=== PATIENT | female | born 1950 | race African-American/Black ===

== ENCOUNTER 2018-05-13 20:14 | Inpatient (IN) | payer MEDICARE, MEDICAID ==
[~2018-05-13] VITALS: Ht 165.1 cm; Wt 120.7 kg
[~2018-05-13 20:14] MED LIST: AMLO10TA80 PO; APIXABAN PO; ASPI-1079 PO; ATROV NEB; BECL8.7A6 INH; CARV6.2548 PO; CLON0.3T PO; DOCU-138 PO; FERR-63 PO; FURO20TA4 PO; NITR0.4T49 SL; OMEP40CA34 PO; TOPI50TA PO; TRAM50TA PO
[2018-05-13] MEDS ORDERED: ONDANSETRON HCL 4MG/2ML INJ IV STA (21:30)
[2018-05-13 23:30] LABS: BASOPHILS % 0.8 % (0.0-2.0); EOSINOPHILS % 1.1 % (0.0-5.0); HEMATOCRIT. 35.1 % (36.0-48.0); HEMOGLOBIN. 10.9 g/dL (12.0-16.0); LYMPHOCYTES % 36.4 % (20.0-50.0); MEAN CORPUSCULAR HEMOGLOBIN 22.3 pg (28.0-32.0); MEAN CORPUSCULAR VOLUME 71.5 fL (81.0-99.0); MEAN PLATELET VOLUME 7.7 fl (7.4-10.4); MONOCYTES % 6.6 % (2.0-8.0); NEUTROPHILS % 55.1 % (40.0-76.0); PLATELET 254 x1000/uL (130-400); RED BLOOD CELL COUNT 4.91 mill/uL (4.2-5.4); RED CELL DISTRIBUTION WIDTH 16.2 % (11.6-14.6)
[2018-05-13 23:32] LABS: CHLORIDE 112 mEq/L (98-107)
[2018-05-13] MEDS ORDERED: NORT50CA MT (23:54)
[2018-05-13] MEDS ORDERED: METO-539 MT (23:54)
[2018-05-13] MEDS ORDERED: APIX5TAB MT (23:54)
[2018-05-14] MEDS ORDERED: AMLODIPINE 10MG TABLET PO SCH
[2018-05-14] MEDS ORDERED: KETOROLAC 15MG/ML VIAL IV NR (01:30)
[2018-05-14] MEDS ORDERED: LABETALOL HCL 20MG/4ML CARPUJECT IV NR (02:15)
[2018-05-14] MEDS ORDERED: IOHEXOL-350 100 ML BOTTLE ONE (04:27)
[2018-05-14] MEDS ORDERED: IPRATROPIUM/ALBUTEROL 0.5-3(2.5)MG/3ML NEB INH PRN (08:15)
[2018-05-14] MEDS ORDERED: ENOXAPARIN 40MG/0.4ML SYR SUBCUT SCH (08:15)
[2018-05-14] MEDS ORDERED: DIPHENHYDRAMINE 50MG/ML VIAL IV PRN (08:15)
[2018-05-14 12:00] VITALS: BP 140/85
[2018-05-14 12:08] VITALS: BP 140/85
[2018-05-14 16:00] VITALS: BP 140/81
[2018-05-14] MEDS: FUROSEMIDE 40MG/4ML VIAL IVP SCH (16:18)
[2018-05-14] MEDS: POTASSIUM CHLORIDE 20MEQ TABLET SR PO SCH (16:18)
[2018-05-14] MEDS: OMEPRAZOLE 20MG CAPSULE EXTENDED RELEASE PO SCH (18:30)
[2018-05-14] MEDS: ASPIRIN 81MG TABLET PO SCH (18:31)
[2018-05-14] MEDS: AMLODIPINE 10MG TABLET PO SCH (18:31)
[2018-05-14] MEDS: APIXABAN 5 MG TABLET PO SCH (18:31)
[2018-05-14 20:00] VITALS: BP 131/78
[2018-05-14] MEDS: CLONIDINE 0.3MG TABLET PO SCH (20:58)
[2018-05-14] MEDS: METOPROLOL TARTRATE 50MG TABLET PO SCH (20:58)
[2018-05-14] MEDS: NORTRIPTYLINE HCL 25MG CAPSULE PO SCH (20:59)
[2018-05-14] MEDS: TOPIRAMATE 100MG TABLET PO SCH (20:59)
[2018-05-14] MEDS ORDERED: METOPROLOL TARTRATE 50MG TABLET PO SCH ×2 (21:00)
[2018-05-14] MEDS ORDERED: ENOXAPARIN 30MG/0.3ML SYR SUBCUT SCH (21:00)
[2018-05-15] VITALS (7 sets, daily range): BP systolic 98–148; BP diastolic 54–71
[2018-05-15 00:53] LABS: PHOSPHORUS 4.4 mg/dL (2.5-4.9)
[2018-05-15 06:18] LABS: EOSINOPHILS % 2.7 % (0.0-5.0); HEMATOCRIT. 34.7 % (36.0-48.0); HEMOGLOBIN. 10.7 g/dL (12.0-16.0); LYMPHOCYTES % 33.9 % (20.0-50.0); MEAN CORPUSCULAR HEMOGLOBIN 22.1 pg (28.0-32.0); MEAN PLATELET VOLUME 7.7 fl (7.4-10.4); MONOCYTES % 8.9 % (2.0-8.0); NEUTROPHILS % 53.5 % (40.0-76.0); PLATELET 263 x1000/uL (130-400); RED BLOOD CELL COUNT 4.81 mill/uL (4.2-5.4); RED CELL DISTRIBUTION WIDTH 16.3 % (11.6-14.6)
[2018-05-15 06:24] LABS: CHLORIDE 109 mEq/L (98-107)
[2018-05-15 06:41] LABS: LDL CHOLESTEROL 89 mg/dL (5-100)
[2018-05-15 06:44] LABS: HDL CHOLESTEROL 48 mg/dL (40-59)
[2018-05-15] MEDS: METOPROLOL TARTRATE 50MG TABLET PO SCH ×2 (09:00→21:37)
[2018-05-15] MEDS: AMLODIPINE 10MG TABLET PO SCH (09:00)
[2018-05-15] MEDS: CLONIDINE 0.3MG TABLET PO SCH ×2 (09:00→21:00)
[2018-05-15] MEDS: POTASSIUM CHLORIDE 20MEQ TABLET SR PO SCH (09:19)
[2018-05-15] MEDS: ONDANSETRON HCL 4MG/2ML INJ IV PRN (09:19)
[2018-05-15] MEDS: FUROSEMIDE 40MG/4ML VIAL IVP SCH (09:19)
[2018-05-15] MEDS: OMEPRAZOLE 20MG CAPSULE EXTENDED RELEASE PO SCH (09:19)
[2018-05-15] MEDS: APIXABAN 5 MG TABLET PO SCH ×2 (09:19→16:30)
[2018-05-15] MEDS: ASPIRIN 81MG TABLET PO SCH (09:19)
[2018-05-15] MEDS: NORTRIPTYLINE HCL 25MG CAPSULE PO SCH (21:37)
[2018-05-15] MEDS: TOPIRAMATE 100MG TABLET PO SCH (21:37)
[2018-05-16 04:00] VITALS: BP 109/56
[2018-05-16 06:47] LABS: CHLORIDE 110 mEq/L (98-107)
[2018-05-16 07:05] LABS: BASOPHILS % 0.8 % (0.0-2.0); EOSINOPHILS % 2.9 % (0.0-5.0); HEMATOCRIT. 33.9 % (36.0-48.0); HEMOGLOBIN. 10.5 g/dL (12.0-16.0); LYMPHOCYTES % 32.2 % (20.0-50.0); MEAN CORPUSCULAR HEMOGLOBIN 22.3 pg (28.0-32.0); MEAN CORPUSCULAR VOLUME 72.3 fL (81.0-99.0); MEAN PLATELET VOLUME 7.6 fl (7.4-10.4); MONOCYTES % 8.1 % (2.0-8.0); PLATELET 250 x1000/uL (130-400); RED BLOOD CELL COUNT 4.68 mill/uL (4.2-5.4); RED CELL DISTRIBUTION WIDTH 16.5 % (11.6-14.6)
[2018-05-16 08:00] VITALS: BP 99/55
[2018-05-16] MEDS: METOPROLOL TARTRATE 50MG TABLET PO SCH ×2 (09:00→15:23)
[2018-05-16] MEDS: CLONIDINE 0.3MG TABLET PO SCH ×2 (09:00→20:13)
[2018-05-16] MEDS: AMLODIPINE 10MG TABLET PO SCH ×2 (09:00→15:23)
[2018-05-16] MEDS: ASPIRIN 81MG TABLET PO SCH (09:30)
[2018-05-16] MEDS: POTASSIUM CHLORIDE 20MEQ TABLET SR PO SCH (09:37)
[2018-05-16] MEDS: FUROSEMIDE 40MG/4ML VIAL IVP SCH (09:37)
[2018-05-16] MEDS: APIXABAN 5 MG TABLET PO SCH ×2 (09:38→16:41)
[2018-05-16] MEDS: FAMOTIDINE 20MG TABLET PO SCH (09:39)
[2018-05-16 11:47] LABS: CLARITY URINE CLEAR (CLEAR); COLOR URINE YELLOW (YELLOW); KETONES URINE NEGATIVE (NEGATIVE); LEUKOCYTE ESTERASE URINE 1+ (NEGATIVE); NITRITE URINE NEGATIVE (NEGATIVE); OCCULT BLOOD URINE 3+ (NEGATIVE); PH URINE 5.5 (4.5-8.0); PROTEIN URINE TRACE (NEGATIVE)
[2018-05-16 12:00] VITALS: BP 109/58
[2018-05-16] MEDS: NITROFURANTOIN 100MG M/M CAPSULE PO SCH ×2 (15:23→22:01)
[2018-05-16 16:00] VITALS: BP 121/64
[2018-05-16 20:00] VITALS: BP 116/60
[2018-05-16] MEDS: NORTRIPTYLINE HCL 25MG CAPSULE PO SCH (20:12)
[2018-05-16] MEDS: ONDANSETRON HCL 4MG/2ML INJ IV PRN (20:13)
[2018-05-16] MEDS: TOPIRAMATE 100MG TABLET PO SCH (20:13)
[2018-05-17] VITALS (8 sets, daily range): BP systolic 98–135; BP diastolic 43–79
[2018-05-17 06:53] LABS: BASOPHILS % 0.7 % (0.0-2.0); EOSINOPHILS % 3.2 % (0.0-5.0); HEMATOCRIT. 32.8 % (36.0-48.0); HEMOGLOBIN. 10.1 g/dL (12.0-16.0); MEAN CORPUSCULAR VOLUME 71.7 fL (81.0-99.0); MEAN PLATELET VOLUME 7.5 fl (7.4-10.4); MONOCYTES % 8.7 % (2.0-8.0); NEUTROPHILS % 54.4 % (40.0-76.0); PLATELET 253 x1000/uL (130-400); RED BLOOD CELL COUNT 4.58 mill/uL (4.2-5.4); RED CELL DISTRIBUTION WIDTH 15.9 % (11.6-14.6)
[2018-05-17 06:55] LABS: D-DIMER 6.65 mg/L FEU (<0.50); INR 1.1; PARTIAL THROMBOPLASTIN TIME 31.7 sec (23.4-31.0); PROTHROMBIN TIME 11.1 sec (9.1-11.1)
[2018-05-17 07:20] LABS: CHLORIDE 108 mEq/L (98-107)
[2018-05-17] MEDS ORDERED: FUROSEMIDE 20MG TABLET PO SCH (09:00)
[2018-05-17] MEDS: NITROFURANTOIN 100MG M/M CAPSULE PO SCH ×2 (10:46→21:38)
[2018-05-17] MEDS: CLONIDINE 0.3MG TABLET PO SCH (10:47)
[2018-05-17] MEDS: ASPIRIN 81MG TABLET PO SCH (10:47)
[2018-05-17] MEDS: METOPROLOL TARTRATE 50MG TABLET PO SCH (10:48)
[2018-05-17] MEDS: POTASSIUM CHLORIDE 20MEQ TABLET SR PO SCH (10:48)
[2018-05-17] MEDS: FAMOTIDINE 20MG TABLET PO SCH ×2 (10:49→21:39)
[2018-05-17] MEDS: FUROSEMIDE 40MG/4ML VIAL IVP SCH (10:49)
[2018-05-17] MEDS: APIXABAN 5 MG TABLET PO SCH ×2 (10:53→20:05)
[2018-05-17] MEDS ORDERED: CLONIDINE 0.2MG TABLET PO SCH (12:30)
[2018-05-17] MEDS: AMLODIPINE 2.5MG TABLET PO SCH ×2 (13:59→21:39)
[2018-05-17] MEDS ORDERED: NITROFURANTOIN 100MG M/M CAPSULE PO SCH (21:00)
[2018-05-17] MEDS: METOPROLOL TARTRATE 25MG TABLET PO SCH (21:38)
[2018-05-17] MEDS: TOPIRAMATE 100MG TABLET PO SCH (21:39)
[2018-05-17] MEDS: NORTRIPTYLINE HCL 25MG CAPSULE PO SCH (21:39)
[2018-05-17] MEDS: CLONIDINE 0.2MG TABLET PO SCH (21:39)
[2018-05-18] VITALS: BP 110/61
[2018-05-18 04:00] VITALS: BP 115/59
[2018-05-18 06:53] LABS: EOSINOPHILS % 3.3 % (0.0-5.0); HEMOGLOBIN. 10.3 g/dL (12.0-16.0); LYMPHOCYTES % 29.5 % (20.0-50.0); MEAN CORPUSCULAR HEMOGLOBIN 21.9 pg (28.0-32.0); MEAN PLATELET VOLUME 7.6 fl (7.4-10.4); NEUTROPHILS % 57.2 % (40.0-76.0); PLATELET 256 x1000/uL (130-400); RED BLOOD CELL COUNT 4.72 mill/uL (4.2-5.4); RED CELL DISTRIBUTION WIDTH 16.2 % (11.6-14.6)
[2018-05-18 08:00] VITALS: BP 102/55
[2018-05-18] MEDS: FAMOTIDINE 20MG TABLET PO SCH ×2 (08:56→21:23)
[2018-05-18] MEDS: NITROFURANTOIN 100MG M/M CAPSULE PO SCH ×2 (08:56→21:23)
[2018-05-18] MEDS: POTASSIUM CHLORIDE 20MEQ TABLET SR PO SCH (08:56)
[2018-05-18] MEDS: ASPIRIN 81MG TABLET PO SCH (08:56)
[2018-05-18] MEDS: CLONIDINE 0.2MG TABLET PO SCH ×2 (08:57→21:00)
[2018-05-18] MEDS: FUROSEMIDE 40MG/4ML VIAL IVP SCH (08:57)
[2018-05-18] MEDS: METOPROLOL TARTRATE 25MG TABLET PO SCH ×2 (08:58→21:24)
[2018-05-18] MEDS: AMLODIPINE 2.5MG TABLET PO SCH ×2 (08:59→21:00)
[2018-05-18] MEDS: APIXABAN 5 MG TABLET PO SCH ×2 (09:08→17:45)
[2018-05-18 13:00] VITALS: BP 127/71
[2018-05-18 16:00] VITALS: BP 103/53
[2018-05-18] MEDS: ONDANSETRON HCL 4MG/2ML INJ IV PRN (19:12)
[2018-05-18 20:00] VITALS: BP 112/52
[2018-05-18] MEDS: NORTRIPTYLINE HCL 25MG CAPSULE PO SCH (21:23)
[2018-05-18] MEDS: TOPIRAMATE 100MG TABLET PO SCH (21:23)
[2018-05-19] VITALS: BP 112/65
[2018-05-19 04:00] VITALS: BP 122/42
[2018-05-19 08:00] VITALS: BP 114/58
[2018-05-19 08:34] LABS: BASOPHILS % 0.9 % (0.0-2.0); EOSINOPHILS % 3.3 % (0.0-5.0); HEMATOCRIT. 33.6 % (36.0-48.0); HEMOGLOBIN. 10.4 g/dL (12.0-16.0); LYMPHOCYTES % 31.8 % (20.0-50.0); MEAN CORPUSCULAR HEMOGLOBIN 22.1 pg (28.0-32.0); MEAN CORPUSCULAR VOLUME 71.5 fL (81.0-99.0); MEAN PLATELET VOLUME 7.3 fl (7.4-10.4); MONOCYTES % 8.3 % (2.0-8.0); NEUTROPHILS % 55.7 % (40.0-76.0); PLATELET 254 x1000/uL (130-400); RED BLOOD CELL COUNT 4.69 mill/uL (4.2-5.4); RED CELL DISTRIBUTION WIDTH 15.9 % (11.6-14.6)
[2018-05-19] MEDS: AMLODIPINE 2.5MG TABLET PO SCH (09:00)
[2018-05-19] MEDS: CLONIDINE 0.2MG TABLET PO SCH (09:00)
[2018-05-19] MEDS: FUROSEMIDE 40MG/4ML VIAL IVP SCH (09:36)
[2018-05-19] MEDS: POTASSIUM CHLORIDE 20MEQ TABLET SR PO SCH (09:37)
[2018-05-19] MEDS: APIXABAN 5 MG TABLET PO SCH ×2 (09:37→16:45)
[2018-05-19] MEDS: NITROFURANTOIN 100MG M/M CAPSULE PO SCH (09:37)
[2018-05-19] MEDS: METOPROLOL TARTRATE 25MG TABLET PO SCH (09:37)
[2018-05-19] MEDS: FAMOTIDINE 20MG TABLET PO SCH (09:38)
[2018-05-19] MEDS: ASPIRIN 81MG TABLET PO SCH (09:38)
[2018-05-19] MEDS: ONDANSETRON HCL 4MG/2ML INJ IV PRN ×2 (09:50→16:42)
[2018-05-19 12:00] VITALS: BP_SYST 117; BP_SYST 127; BP_DIAS 58; BP_DIAS 61
[2018-05-19] MEDS ORDERED: MAGNESIUM CITRATE 300ML SOLUTION PO NR (13:00)
[2018-05-19] MEDS ORDERED: CEFEPIME 1,000 MG in DEXTROSE 5% WATER 50 ML IV SCH (14:00)
[2018-05-19 16:01] VITALS: BP 117/58
== END 2018-05-19 14:30 | disposition home or self-care (01) | DRG 194 ==
LOC: ER 21:44 → 7WST 05-14 02:40 → EDBEDREQTM 05-14 02:45 → EDBEDREQDT 05-14 02:45 → EDBEDREQ 05-14 02:45 → ENRESERV 05-14 09:01 → CMPBEDREQ 05-14 11:07
PROVIDERS: ADMIT Internal Medicine; ATTEND Internal Medicine
DX: I13.0 Hypertensive heart and chronic kidney disease with heart failure and stage 1 through stage 4 chronic kidney disease, or unspecified chronic kidney disease (principal); N17.9 Acute kidney failure, unspecified; I27.20 Pulmonary hypertension, unspecified; I07.1 Rheumatic tricuspid insufficiency; E66.01 Morbid (severe) obesity due to excess calories; N12 Tubulo-interstitial nephritis, not specified as acute or chronic; I42.9 Cardiomyopathy, unspecified; I48.0 Paroxysmal atrial fibrillation; I50.23 Acute on chronic systolic (congestive) heart failure; J44.9 Chronic obstructive pulmonary disease, unspecified; I71.4 Abdominal aortic aneurysm, without rupture; N18.1 Chronic kidney disease, stage 1; I35.0 Nonrheumatic aortic (valve) stenosis; K59.00 Constipation, unspecified; Z79.51 Long term (current) use of inhaled steroids; Z79.82 Long term (current) use of aspirin; Z86.73 Personal history of transient ischemic attack (TIA), and cerebral infarction without residual deficits; Z86.79 Personal history of other diseases of the circulatory system; Z90.710 Acquired absence of both cervix and uterus; Z96.619 Presence of unspecified artificial shoulder joint; Z96.653 Presence of artificial knee joint, bilateral; Z88.0 Allergy status to penicillin; Z88.1 Allergy status to other antibiotic agents; Z88.5 Allergy status to narcotic agent; Z68.41 Body mass index [BMI] 40.0-44.9, adult
CPT/HCPCS: 36415; 71045; 71275; 78582; 80048; 80061; 83036; 83735; 83880; 84100; 84443; 84484; 85379; 87077; 87186; 93005; 93306; 93970; 96374; 97162; 99291; A9558; C1893; J0692; J1200; J1940; J2405; J7050; J7060; Q9967

== ENCOUNTER 2018-08-27 13:03 | Inpatient (IN) | payer MEDICARE, MEDICAID ==
[~2018-08-27] VITALS: Ht 165.1 cm; Wt 122.9 kg
[~2018-08-27 13:03] MED LIST changes: +APIX5TAB MT; -APIXABAN PO; -CARV6.2548 PO; -DOCU-138 PO; -FERR-63 PO; +METO-539 MT; +NORT50CA MT; -TRAM50TA PO
[2018-08-27] MEDS ORDERED: NITROGLYCERIN 0.4MG TABLET SL SL PRN (14:30)
[2018-08-27] MEDS ORDERED: SODIUM CHLORIDE 0.9% 1,000 ML IV ONE ×2 (14:43)
[2018-08-27 15:04] LABS: HEMATOCRIT. 32.2 % (36.0-48.0); HEMOGLOBIN. 10.1 g/dL (12.0-16.0); LYMPHOCYTES % 28.8 % (20.0-50.0); MEAN CORPUSCULAR VOLUME 70.3 fL (81.0-99.0); MEAN PLATELET VOLUME 7.3 fl (7.4-10.4); MONOCYTES % 6.6 % (2.0-8.0); NEUTROPHILS % 61.6 % (40.0-76.0); PLATELET 275 x1000/uL (130-400); RED BLOOD CELL COUNT 4.58 mill/uL (4.2-5.4); RED CELL DISTRIBUTION WIDTH 15.4 % (11.6-14.6)
[2018-08-27 15:10] LABS: CHLORIDE 113 mEq/L (98-107)
[2018-08-27 15:12] LABS: PARTIAL THROMBOPLASTIN TIME 34.6 sec (23.4-31.0); PROTHROMBIN TIME 10.6 sec (9.6-11.0)
[2018-08-27] MEDS ORDERED: IOHEXOL-350 100 ML BOTTLE ONE (16:44)
[2018-08-27] MEDS ORDERED: IPRATROPIUM/ALBUTEROL 0.5-3(2.5)MG/3ML NEB INH PRN (20:30)
[2018-08-27] MEDS ORDERED: LORAZEPAM 2MG/ML CPJ IV PRN (20:30)
[2018-08-27] MEDS ORDERED: HYDRALAZINE 20MG/ML VIAL IV PRN (20:30)
[2018-08-27] MEDS ORDERED: DIPHENHYDRAMINE 50MG/ML VIAL IV PRN (20:30)
[2018-08-27] MEDS ORDERED: MAGNESIUM/ALUMINUM HYDROXIDE/SIMETHICONE 30ML UDC PO PRN (20:30)
[2018-08-27] MEDS ORDERED: GUAIFENESIN 200MG/10ML SUGAR FREE UDC PO PRN (20:30)
[2018-08-27] MEDS ORDERED: NA PHOS,M-B/NA PHOS,DI-BA ENEMA 118ML PR PRN (20:30)
[2018-08-27] MEDS ORDERED: DOCUSATE SODIUM 100MG CAPSULE PO PRN (20:30)
[2018-08-27] MEDS ORDERED: CLONIDINE 0.1MG TABLET PO PRN (20:30)
[2018-08-27] MEDS ORDERED: ONDANSETRON HCL 4MG/2ML INJ IV PRN (20:30)
[2018-08-27 21:00] VITALS: BP 161/91
[2018-08-27] MEDS: NORTRIPTYLINE HCL 25MG CAPSULE PO SCH (23:34)
[2018-08-27] MEDS: METOPROLOL TARTRATE 50MG TABLET PO SCH (23:35)
[2018-08-27] MEDS: CLONIDINE 0.3MG TABLET PO SCH (23:35)
[2018-08-28] VITALS (7 sets, daily range): BP systolic 96–161; BP diastolic 53–91
[2018-08-28] MEDS: TOPIRAMATE 100MG TABLET PO SCH ×2 (00:23→21:28)
[2018-08-28 01:06] LABS: CREATINE KINASE 73 IU/L (26-192)
[2018-08-28 01:07] LABS: CREATINE KINASE MB FRACTION < 1.0 ng/mL (0.5-3.6)
[2018-08-28] MEDS: SODIUM CHLORIDE 0.9% INJ 3ML FLUSH IVF SCH ×3 (06:15→21:28)
[2018-08-28] MEDS: METOPROLOL TARTRATE 50MG TABLET PO SCH ×2 (09:10→21:27)
[2018-08-28] MEDS: ASPIRIN 81MG EC TABLET PO SCH (09:10)
[2018-08-28] MEDS: CLONIDINE 0.3MG TABLET PO SCH ×2 (09:14→21:00)
[2018-08-28 10:27] LABS: EOSINOPHILS % 3.1 % (0.0-5.0); HEMATOCRIT. 30.8 % (36.0-48.0); HEMOGLOBIN. 9.4 g/dL (12.0-16.0); LYMPHOCYTES % 26.3 % (20.0-50.0); MEAN CORPUSCULAR HEMOGLOBIN 21.8 pg (28.0-32.0); MEAN CORPUSCULAR VOLUME 71.1 fL (81.0-99.0); MEAN PLATELET VOLUME 7.4 fl (7.4-10.4); MONOCYTES % 6.6 % (2.0-8.0); PLATELET 255 x1000/uL (130-400); RED BLOOD CELL COUNT 4.33 mill/uL (4.2-5.4); RED CELL DISTRIBUTION WIDTH 15.2 % (11.6-14.6)
[2018-08-28 10:34] LABS: CHLORIDE 113 mEq/L (98-107)
[2018-08-28 10:42] LABS: LDL CHOLESTEROL 89 mg/dL (5-100)
[2018-08-28 10:45] LABS: CREATINE KINASE 67 IU/L (26-192); T4 FREE 0.84 ng/dL (0.76-1.46)
[2018-08-28 10:52] LABS: CREATINE KINASE MB FRACTION < 1.0 ng/mL (0.5-3.6)
[2018-08-28 10:56] LABS: HDL CHOLESTEROL 41 mg/dL (40-59)
[2018-08-28] MEDS: NORTRIPTYLINE HCL 25MG CAPSULE PO SCH (21:27)
[2018-08-29] VITALS: BP 100/47
[2018-08-29 04:00] VITALS: BP 104/51
[2018-08-29] MEDS: SODIUM CHLORIDE 0.9% INJ 3ML FLUSH IVF SCH (05:31)
[2018-08-29 06:16] LABS: BASOPHILS % 0.6 % (0.0-2.0); EOSINOPHILS % 2.8 % (0.0-5.0); HEMATOCRIT. 28.3 % (36.0-48.0); HEMOGLOBIN. 8.9 g/dL (12.0-16.0); LYMPHOCYTES % 29.8 % (20.0-50.0); MEAN CORPUSCULAR HEMOGLOBIN 22.4 pg (28.0-32.0); MEAN PLATELET VOLUME 7.5 fl (7.4-10.4); MONOCYTES % 7.5 % (2.0-8.0); NEUTROPHILS % 59.3 % (40.0-76.0); PLATELET 242 x1000/uL (130-400); RED BLOOD CELL COUNT 3.98 mill/uL (4.2-5.4); RED CELL DISTRIBUTION WIDTH 15.7 % (11.6-14.6)
[2018-08-29 06:27] LABS: CHLORIDE 112 mEq/L (98-107)
[2018-08-29 08:29] VITALS: BP 110/57
[2018-08-29] MEDS: METOPROLOL TARTRATE 50MG TABLET PO SCH (08:33)
[2018-08-29] MEDS: ASPIRIN 81MG EC TABLET PO SCH (08:33)
[2018-08-29] MEDS: CLONIDINE 0.3MG TABLET PO SCH (08:34)
[2018-08-29 10:00] VITALS: BP 129/58
[2018-08-29 10:55] VITALS: BP 111/57
== END 2018-08-29 15:55 | disposition home or self-care (01) | DRG 194 ==
LOC: ER 13:03 → 5WST 17:56 → EDBEDREQ 18:04 → ENRESERV 19:54
PROVIDERS: ADMIT Internal Medicine; ATTEND Internal Medicine
DX: I13.0 Hypertensive heart and chronic kidney disease with heart failure and stage 1 through stage 4 chronic kidney disease, or unspecified chronic kidney disease (principal); I27.20 Pulmonary hypertension, unspecified; I48.0 Paroxysmal atrial fibrillation; Z68.42 Body mass index [BMI] 45.0-49.9, adult; I48.92 Unspecified atrial flutter; I49.5 Sick sinus syndrome; I50.9 Heart failure, unspecified; R07.89 Other chest pain; I25.10 Atherosclerotic heart disease of native coronary artery without angina pectoris; D64.9 Anemia, unspecified; J44.9 Chronic obstructive pulmonary disease, unspecified; K21.9 Gastro-esophageal reflux disease without esophagitis; N18.3 Chronic kidney disease, stage 3 (moderate); Z79.01 Long term (current) use of anticoagulants; Z79.51 Long term (current) use of inhaled steroids; Z79.899 Other long term (current) drug therapy; Z86.73 Personal history of transient ischemic attack (TIA), and cerebral infarction without residual deficits; Z95.1 Presence of aortocoronary bypass graft; Z79.82 Long term (current) use of aspirin; Z88.0 Allergy status to penicillin; Z88.1 Allergy status to other antibiotic agents; Z88.5 Allergy status to narcotic agent; Z91.013 Allergy to seafood; Z88.2 Allergy status to sulfonamides; Z88.8 Allergy status to other drugs, medicaments and biological substances; Z91.018 Allergy to other foods
CPT/HCPCS: 36415; 71045; 71275; 74174; 80061; 82550; 82553; 83735; 83880; 84439; 84443; 84484; 93005; 99285; J7030; Q9967

== ENCOUNTER → 2020-01-20 | Outpatient (CLI) | payer MEDICARE, MEDICAID ==
[~2020-01-20] MED LIST changes: -FURO20TA4 PO; +OMEP40CA12 PO; -OMEP40CA34 PO
== END | disposition home or self-care (01) ==
LOC: RAD 16:56
PROVIDERS: ATTEND Specialist
DX: Z01.818 Encounter for other preprocedural examination (principal); R05 Cough; Z98.890 Other specified postprocedural states; Z95.1 Presence of aortocoronary bypass graft
CPT/HCPCS: 71046

== ENCOUNTER → 2022-02-11 | Outpatient (CLI) | payer MEDICARE, MEDICAID ==
[~2022-02-11] MED LIST changes: +CEPH500C2 MT; +DOXY100C5 MT; +FURO20TA4 MT; +GADOTERATE MEGLUMINE 5 MMOL/10 ML VIAL IV ONE; -OMEP40CA12 PO; +OMEP40CA20 PO
== END | disposition home or self-care (01) ==
LOC: MRI 09:48
PROVIDERS: ATTEND Neurological Surgery
DX: G31.9 Degenerative disease of nervous system, unspecified (principal); I67.82 Cerebral ischemia; R90.82 White matter disease, unspecified; R51.9 Headache, unspecified
CPT/HCPCS: 70553; A9577

== ENCOUNTER → 2022-03-20 | Outpatient (CLI) | payer MEDICARE, MEDICAID ==
[~2022-03-20] MED LIST changes: -GADOTERATE MEGLUMINE 5 MMOL/10 ML VIAL IV ONE
== END | disposition home or self-care (01) ==
LOC: MRI 09:34
PROVIDERS: ATTEND Neurological Surgery
DX: M50.31 Other cervical disc degeneration, high cervical region (principal); M48.02 Spinal stenosis, cervical region; M89.38 Hypertrophy of bone, other site
CPT/HCPCS: 72141

== ENCOUNTER 2022-06-23 10:41 | Inpatient (IN) | payer MEDICARE, MEDICAID ==
[~2022-06-23] VITALS: Ht 166.4 cm; Wt 132.4 kg
[2022-06-23 13:02] LABS: BASOPHILS % 0.8 % (0.0-2.0); EOSINOPHILS % 0.5 % (0.0-5.0); HEMATOCRIT. 30.6 % (36.0-48.0); HEMOGLOBIN. 9.4 g/dL (12.0-16.0); LYMPHOCYTES % 20.4 % (20.0-50.0); MEAN CORPUSCULAR HEMOGLOBIN 19.6 pg (28.0-32.0); MEAN CORPUSCULAR VOLUME 63.8 fL (81.0-99.0); MEAN PLATELET VOLUME 8.7 fl (7.4-10.4); MONOCYTES % 6.3 % (2.0-8.0); PLATELET 307 x1000/uL (130-400); RED CELL DISTRIBUTION WIDTH 19.6 % (11.6-14.6)
[2022-06-23 13:04] LABS: CHLORIDE 108 mEq/L (98-107)
[2022-06-23 13:17] LABS: PHOSPHORUS 2.6 mg/dL (2.5-4.9)
[2022-06-23 13:22] LABS: PLATELET ESTIMATE NORMAL
[2022-06-23] MEDS ORDERED: METOPROLOL SUCCINATE 50MG ER TABLET PO STA (13:59)
[2022-06-23 15:41] LABS: CLARITY URINE CLEAR (CLEAR); COLOR URINE YELLOW (YELLOW); KETONES URINE NEGATIVE (NEGATIVE); LEUKOCYTE ESTERASE URINE NEGATIVE (NEGATIVE); NITRITE URINE NEGATIVE (NEGATIVE); OCCULT BLOOD URINE NEGATIVE (NEGATIVE); PH URINE 8.5 (4.5-8.0); PROTEIN URINE NEGATIVE (NEGATIVE); SPECIFIC GRAVITY URINE 1.013 (1.005-1.030)
[2022-06-23] MEDS ORDERED: MAGNESIUM/ALUMINUM HYDROXIDE/SIMETHICONE 30ML UDC PO PRN (16:30)
[2022-06-23] MEDS ORDERED: IPRATROPIUM/ALBUTEROL 0.5-3(2.5)MG/3ML NEB NEB PRN (16:30)
[2022-06-23] MEDS ORDERED: ACETAMINOPHEN 325MG TABLET PO PRN ×2 (16:30)
[2022-06-23] MEDS ORDERED: CLONIDINE 0.1MG TABLET PO PRN (16:30)
[2022-06-23] MEDS ORDERED: NITROGLYCERIN 0.4MG TABLET SL SL PRN (16:30)
[2022-06-23] MEDS ORDERED: GUAIFENESIN 200MG/10ML SUGAR FREE UDC PO PRN (16:30)
[2022-06-23] MEDS ORDERED: DOCUSATE SODIUM 100MG CAPSULE PO PRN (16:30)
[2022-06-23] MEDS: KETOROLAC 15MG/ML VIAL IV PRN ×2 (17:37→23:53)
[2022-06-23 18:00] VITALS: BP 152/71
[2022-06-23 20:00] VITALS: BP_SYST 116; BP_SYST 141; BP_DIAS 61; BP_DIAS 63
[2022-06-23] MEDS: APIXABAN 5 MG TABLET PO SCH (20:47)
[2022-06-23] MEDS: ASCORBIC ACID 500 MG TABLET PO SCH (20:48)
[2022-06-23] MEDS: METOPROLOL TARTRATE 25MG TABLET PO SCH (20:48)
[2022-06-23] MEDS: FAMOTIDINE 20MG TABLET PO SCH (20:48)
[2022-06-23] MEDS ORDERED: ZOLPIDEM TARTRATE 5MG TABLET PO PRN (21:00)
[2022-06-23] MEDS: SPIRONOLACTONE 25MG TABLET PO SCH (21:00)
[2022-06-23 21:26] LABS: INR 1.1; PROTHROMBIN TIME 11.4 sec (9.6-11.0)
[2022-06-23] MEDS ORDERED: IPRATROPIUM BROMIDE (0.02%) 0.5MG/2.5ML NEB HHN PRN (21:30)
[2022-06-23] MEDS ORDERED: ALBUTEROL (0.083%) 2.5MG/3ML NEB HHN PRN (21:30)
[2022-06-23 21:45] LABS: ETHANOL BLOOD < 10 mg/dL; HDL CHOLESTEROL 45 mg/dL (40-59); LDL CHOLESTEROL 106 mg/dL (5-100); T4 FREE 1.04 ng/dL (0.76-1.46); TOTAL IRON BINDING CAPACITY 315 ug/dL (250-450)
[2022-06-23] MEDS: FUROSEMIDE 40MG/4ML VIAL IVP SCH (22:25)
[2022-06-23 23:14] LABS: VITAMIN B12 SERUM >2000 pg/mL pg/mL (211-911)
[2022-06-24] VITALS: BP 119/57
[2022-06-24 04:00] VITALS: BP 128/53
[2022-06-24 08:00] VITALS: BP 137/87
[2022-06-24] MEDS: ASPIRIN 81MG EC TABLET PO SCH (09:00)
[2022-06-24] MEDS: METOPROLOL TARTRATE 25MG TABLET PO SCH ×2 (09:00→20:27)
[2022-06-24] MEDS: SPIRONOLACTONE 25MG TABLET PO SCH ×2 (09:00→20:26)
[2022-06-24] MEDS: ZINC SULFATE 220 MG ( 50 ) CAPSULE PO SCH (09:05)
[2022-06-24] MEDS: APIXABAN 5 MG TABLET PO SCH ×2 (09:06→17:27)
[2022-06-24] MEDS: AMLODIPINE 10MG TABLET PO SCH (09:08)
[2022-06-24] MEDS: FAMOTIDINE 20MG TABLET PO SCH ×2 (09:09→20:25)
[2022-06-24] MEDS: ASCORBIC ACID 500 MG TABLET PO SCH ×2 (09:17→20:47)
[2022-06-24] MEDS: FUROSEMIDE 40MG/4ML VIAL IVP SCH ×2 (09:26→20:24)
[2022-06-24] MEDS: ONDANSETRON HCL 4MG/2ML INJ IV PRN ×2 (10:45→15:18)
[2022-06-24 12:00] VITALS: BP 124/55
[2022-06-24] MEDS: SUCRALFATE 1 G/10 ML UDC PO SCH ×3 (12:32→20:25)
[2022-06-24 16:00] VITALS: BP 139/60
[2022-06-24 20:00] VITALS: BP 125/61
[2022-06-24] MEDS: KETOROLAC 15MG/ML VIAL IV PRN (20:49)
[2022-06-25] VITALS: BP 149/80
[2022-06-25 04:00] VITALS: BP 125/96
[2022-06-25 08:00] VITALS: BP 130/87
[2022-06-25] MEDS: ASPIRIN 81MG EC TABLET PO SCH (09:00)
[2022-06-25] MEDS: SUCRALFATE 1 G/10 ML UDC PO SCH (09:02)
[2022-06-25] MEDS: FAMOTIDINE 20MG TABLET PO SCH (09:04)
[2022-06-25] MEDS: SPIRONOLACTONE 25MG TABLET PO SCH (09:05)
[2022-06-25] MEDS: AMLODIPINE 10MG TABLET PO SCH (09:06)
[2022-06-25] MEDS: FUROSEMIDE 40MG/4ML VIAL IVP SCH (09:07)
[2022-06-25] MEDS: APIXABAN 5 MG TABLET PO SCH (09:07)
[2022-06-25] MEDS: ASCORBIC ACID 500 MG TABLET PO SCH (09:07)
[2022-06-25] MEDS: ONDANSETRON HCL 4MG/2ML INJ IV PRN (09:17)
[2022-06-25] MEDS: ZINC SULFATE 220 MG ( 50 ) CAPSULE PO SCH (10:19)
[2022-06-25] MEDS: METOPROLOL TARTRATE 25MG TABLET PO SCH (10:47)
[2022-06-25 12:00] VITALS: BP 143/66
[2022-06-25 12:28] VITALS: BP 142/61
== END 2022-06-25 13:46 | disposition home or self-care (01) | DRG 201 ==
LOC: ER 10:41 → 7WST 14:18 → EDBEDREQTM 14:18 → EDBEDREQ 14:18 → EDBEDREQTM 14:19 → SUPCPDRO 16:21 → ER 17:57
PROVIDERS: ADMIT Internal Medicine; ATTEND Internal Medicine
DX: I48.92 Unspecified atrial flutter (principal); E44.1 Mild protein-calorie malnutrition; I11.0 Hypertensive heart disease with heart failure; D63.8 Anemia in other chronic diseases classified elsewhere; I50.40 Unspecified combined systolic (congestive) and diastolic (congestive) heart failure; Z95.1 Presence of aortocoronary bypass graft; Z20.822 Contact with and (suspected) exposure to COVID-19; I25.10 Atherosclerotic heart disease of native coronary artery without angina pectoris; E66.01 Morbid (severe) obesity due to excess calories; M19.90 Unspecified osteoarthritis, unspecified site; J44.9 Chronic obstructive pulmonary disease, unspecified; E78.00 Pure hypercholesterolemia, unspecified; Z96.612 Presence of left artificial shoulder joint; Z96.611 Presence of right artificial shoulder joint; Z96.652 Presence of left artificial knee joint; Z88.0 Allergy status to penicillin; Z88.8 Allergy status to other drugs, medicaments and biological substances; Z79.899 Other long term (current) drug therapy; Z68.42 Body mass index [BMI] 45.0-49.9, adult; Z86.73 Personal history of transient ischemic attack (TIA), and cerebral infarction without residual deficits
CPT/HCPCS: 36415; 71045; 80053; 80061; 80320; 81003; 82607; 82746; 83036; 83540; 83550; 83735; 83880; 84100; 84439; 84443; 84484; 85025; 93005; 93970; 97162; 99285; C1893; J1885; J1940; J2405; G0480

== ENCOUNTER → 2022-12-26 | Day surgery (SDC) | payer MEDICARE, MEDICAID ==
[~2022-12-26] VITALS: Ht 166.4 cm; Wt 124.7 kg
[~2022-12-26] MED LIST changes: +ALBU18HF2 IH; -ASPI-1079 PO; -ATROV NEB; -BECL8.7A6 INH; -CEPH500C2 MT; -CLON0.3T PO; +DEXAMETHASONE 4MG/ML 1ML VIAL ONE; +DIPH25CA83 PO; -DOXY100C5 MT; +FENTANYL CITRATE/PF 50MCG/ML 2ML VIAL ONE; +FLUT100B INH; +KETO5DRO38 EACHEYE; +MONT-39 PO; +NEOM28.37 TP; -NORT50CA MT; -OMEP40CA20 PO; +ONDANSETRON HCL 4MG/2ML INJ ONE; +PROPOFOL 200MG/20ML VIAL IV ONE; +SODIUM CHLORIDE 0.9% 1,000 ML IV ONE; +TC1U15 TOP; -TOPI50TA PO
[2022-12-26 08:47] LABS: BASOPHILS % 1.1 % (0.0-2.0); EOSINOPHILS % 1.5 % (0.0-5.0); HEMATOCRIT. 28.1 % (36.0-48.0); HEMOGLOBIN. 8.6 g/dL (12.0-16.0); LYMPHOCYTES % 27.1 % (20.0-50.0); MEAN CORPUSCULAR HEMOGLOBIN 18.6 pg (28.0-32.0); MEAN CORPUSCULAR HGB CONC 30.4 g/dL (31.0-37.0); MEAN CORPUSCULAR VOLUME 61.1 fL (81.0-99.0); MEAN PLATELET VOLUME 8.2 fl (7.4-10.4); MONOCYTES % 8.2 % (2.0-8.0); NEUTROPHILS % 62.1 % (40.0-76.0); PLATELET 280 x1000/uL (130-400); RED CELL DISTRIBUTION WIDTH 18.4 % (11.6-14.6)
[2022-12-26 08:59] LABS: DIFFERENTIAL COMMENT 1
[2022-12-26 09:00] LABS: ADD RBC MORPHOLOGY YES
[2022-12-26 09:12] LABS: PARTIAL THROMBOPLASTIN TIME 29.8 sec (23.4-31.0); PROTHROMBIN TIME 11.2 sec (9.6-11.0)
[2022-12-26 09:58] LABS: MICROCYTOSIS 2+
[2022-12-26 09:59] LABS: PLATELET ESTIMATE NORMAL
[2022-12-26 10:09] LABS: CHLORIDE 107 mEq/L (98-107); INDEX HEMOLYSI 1 (1-3); INDEX ICTERIC 1 (1-4); INDEX LIPEMIC 1 (1-3); POTASSIUM 4.2 mEq/L (3.5-5.1); SODIUM 139 mEq/L (136-145)
[2022-12-26 10:20] LABS: CALCIUM 9.2 mg/dL (8.5-10.1); CARBON DIOXIDE 26 mEq/L (21-32); GLUCOSE 89 mg/dL (70-105); UREA NITROGEN BLOOD 14 mg/dL (7-21)
== END | disposition home or self-care (01) ==
LOC: OR 07:54
PROVIDERS: ATTEND Internal Medicine Gastroenterology
DX: D50.9 Iron deficiency anemia, unspecified (principal); R10.30 Lower abdominal pain, unspecified; K57.30 Diverticulosis of large intestine without perforation or abscess without bleeding; K64.8 Other hemorrhoids; I11.0 Hypertensive heart disease with heart failure; I50.9 Heart failure, unspecified; I48.91 Unspecified atrial fibrillation; J44.9 Chronic obstructive pulmonary disease, unspecified; M19.90 Unspecified osteoarthritis, unspecified site; Z79.899 Other long term (current) drug therapy; Z98.890 Other specified postprocedural states; Z88.0 Allergy status to penicillin; Z88.1 Allergy status to other antibiotic agents; Z88.6 Allergy status to analgesic agent; Z91.013 Allergy to seafood; Z88.8 Allergy status to other drugs, medicaments and biological substances
CPT/HCPCS: 80048; 85025; 85610; 85730; 36415; 93005; 45378; J3010; J1100; J2405; J2704; Z7610 ×7